=== PATIENT | male | born 1965 | race Caucasian/White ===

== ENCOUNTER → 2024-05-02 18:46 | Outpatient (CLI) | payer OTHER, SELFPAY ==
--- NOTE | 2024-05-02 18:54 | DI.MRI.S_ITS ---
PROCEDURE: MR LUMBAR SPINE WO CON INDICATIONS: LOW BACK PAIN /CERVALGIA TECHNIQUE: Noncontrast sagittal T1 spin echo and T2 fast echo, sagittal STIR, and T2 fast spin echo through the lumbar spine. In cases with scoliosis, additional coronal T2 fast spin echo may be performed. COMPARISON: None. FINDINGS: Image quality: Excellent. Alignment and Curvature: There is normal bony alignment. Bone Marrow: Multilevel degenerative endplate changes. Marrow is of normal overall signal. No acute vertebral body compression fractures. Spinal Cord: Conus medullaris terminates at the L1 level. Visualized cord demonstrates normal signal and size. Paraspinous Soft Tissues: No paravertebral masses. T12-L1: Disc desiccation and mild height loss. No central canal or neural foraminal stenosis. L1-L2: Disc desiccation and mild height loss. Mild disc bulge. Facet arthropathy. No central canal or neural foraminal stenosis. L2-L3: Disc desiccation and moderate height loss. Minimal disc bulge. Facet arthropathy and thickening of ligamentum flavum. Mild central canal stenosis. Mild bilateral neural foraminal stenosis. L3-L4: Disc desiccation and moderate height loss. Facet arthropathy and thickening of ligamentum flavum. Moderate central canal stenosis. Mild bilateral neural foraminal stenosis. L4-L5: Disc desiccation and moderate height loss. Mild disc bulge. Facet arthropathy and thickening of ligamentum flavum. Mild to moderate central canal stenosis. Severe bilateral neural foraminal stenosis. L5-S1: Occasion and moderate height loss. Posterior disc bulge. Facet arthropathy. No significant central canal stenosis. Severe left and moderate right neural foraminal stenosis. IMPRESSION: 1. Multilevel degenerative changes of the lumbar spine as described above. 2. There is moderate central canal stenosis at L3-L4. 3. Severe bilateral neural foraminal stenosis at L4-5 and severe left neural foraminal stenosis at L5-S1. Dictated by: Mike Banks M.D. on 05/03/2024 at 12:52 Approved by: Mike Banks M.D. on 05/03/2024 at 12:55
== END ==
PROVIDERS: PCP Physician Assistant Medical; Referring Provider Nurse Practitioner Primary Care; Visit Provider Nurse Practitioner Primary Care
DX: M47.816 Spondylosis without myelopathy or radiculopathy, lumbar region (principal); M47.817 Spondylosis without myelopathy or radiculopathy, lumbosacral region; M48.061 Spinal stenosis, lumbar region without neurogenic claudication; M48.07 Spinal stenosis, lumbosacral region; M54.50 Low back pain, unspecified
CPT/HCPCS: 72148